=== PATIENT | female | born 1970 | race African-American/Black ===

== ENCOUNTER 2018-07-23 10:09 | Emergency (ER) | payer MEDICARE, MEDICAID ==
--- NOTE | 2018-07-23 10:32 | RAD ---
AP CHEST: Indication: Dizziness, hypertension. Comparison: 11-26-14 FINDINGS: Slight elevation of the right hemidiaphragm again noted. The lungs appear clear with no infiltrate id entified. Heart size is upper normal but accentuated by this projection. IMPRESSION: No acute process apparent. POS: [facility]
[2018-07-23 10:52] LABS: #Basophils 0.1 thou/uL (0.0-0.2); #Eosinphils 0.1 thou/uL (0.0-0.7); #Lymphocytes 2.1 thou/uL (1.20-3.40); #Monocytes 0.5 thou/uL (0.11-0.59); #Neutrophils 7.8 thou/uL (1.40-6.50); %Basophils 1.1 % (0.0-1.0); %Lymphocytes 20.1 % (21.0-51.0); %Monocytes 4.7 % (0.0-10.0); %Neutrophils 73.2 % (42.0-75.0); Hemoglobin 15.8 g/dL (12.0-16.0); Mean Corpuscular HGB CONC 31.8 g/dL (32.0-36.0); Mean Corpuscular Hemoglobin 29.1 pg (27.0-31.0); Mean Corpuscular Volume 91.6 fL (78.0-98.0); Mean Platelet Volume 7.3 fL (7.4-10.4); Platelet Count 367 thou/uL (130-400); RBC Distribution Width 14.9 % (11.5-14.5); Red Blood Cell (RBC) Count 5.43 mill/uL (4.20-5.40); White Blood Cell (WBC) Count 10.6 thou/uL (4.8-10.8)
[2018-07-23 11:10] LABS: ALT (SGPT) 10 U/L (8-55); AST (SGOT) 13 U/L (5-34); Albumin 4.2 g/dL (3.5-5.0); Alkaline Phosphatase 102 U/L (40-150); Anion Gap 15 mmol/L (10-20); BUN (Urea Nitrogen) 13 mg/dL (7.0-18.7); Bilirubin, Total 0.3 mg/dL (0.2-1.2); Calc. Creatinine Clearance 0 mL/min (70-130); Calcium 9.4 mg/dL (7.8-10.44); Carbon Dioxide 24 mmol/L (22-29); Chloride 102 mmol/L (98-107); Estimated GFR-MDRD Greater than 90; Globulin 3.4 g/dL (2.4-3.5); Glucose 88 mg/dL (70-105); Potassium 4.5 mmol/L (3.5-5.1); Protein, Total 7.6 g/dL (6.0-8.3); Sodium 136 mmol/L (136-145)
[2018-07-23] MEDS ORDERED: Acetaminophen 500 MG TAB ONE (12:27)
[2018-07-23] MEDS ORDERED: hydrALAZINE 20 MG/ML VIAL ONE (12:27)
--- NOTE | 2018-07-25 14:29 | EKG ---
Test Reason : Blood Pressure : / mmHG Vent. Rate : 087 BPM Atrial Rate : 087 BPM P-R Int : 160 ms QRS Dur : 070 ms QT Int : 372 ms P-R-T Axes : 036 007 025 degrees QTc Int : 447 ms Normal sinus rhythm Possible Left atrial enlargement Possible Inferior infarct , age undetermined Anterior infarct , age undetermined No STEMI Abnormal ECG Confirmed by YOHAN MCCOY, VAHE House ([id number]), tape editor JACLYN BAJWA ([id number]) on 07/25/2018 2:29:27 PM Referred By: Confirmed By:VAHE ALMANZAR MD
== END 2018-07-23 13:35 | disposition home or self-care (01) ==
LOC: ERS 10:09
DX: I10 Essential (primary) hypertension (principal); J45.901 Unspecified asthma with (acute) exacerbation; E78.5 Hyperlipidemia, unspecified; G43.909 Migraine, unspecified, not intractable, without status migrainosus; F31.9 Bipolar disorder, unspecified; F20.9 Schizophrenia, unspecified; F17.210 Nicotine dependence, cigarettes, uncomplicated; Z79.899 Other long term (current) drug therapy
CPT/HCPCS: 36415; 71045; 80053; 83880; 84484; 85025; 93005; 94640; 96374; J0360

== ENCOUNTER 2018-08-11 07:20 | Outpatient (CLI) | payer MEDICARE, MEDICAID ==
[2018-08-11 13:44] LABS: #Basophils 0.1 thou/uL (0.0-0.2); #Eosinphils 0.1 thou/uL (0.0-0.7); #Lymphocytes 2.5 thou/uL (1.20-3.40); #Monocytes 0.7 thou/uL (0.11-0.59); #Neutrophils 7.3 thou/uL (1.40-6.50); %Basophils 0.9 % (0.0-1.0); %Eosinophils 0.8 % (0.0-10.0); %Lymphocytes 23.3 % (21.0-51.0); %Monocytes 6.2 % (0.0-10.0); %Neutrophils 68.7 % (42.0-75.0); Hemoglobin 15.9 g/dL (12.0-16.0); Mean Corpuscular HGB CONC 31.6 g/dL (32.0-36.0); Mean Corpuscular Hemoglobin 29.4 pg (27.0-31.0); Mean Corpuscular Volume 92.8 fL (78.0-98.0); Platelet Count 352 thou/uL (130-400); Red Blood Cell (RBC) Count 5.43 mill/uL (4.20-5.40); White Blood Cell (WBC) Count 10.6 thou/uL (4.8-10.8)
[2018-08-11 13:54] LABS: Anion Gap 15 mmol/L (10-20); BUN (Urea Nitrogen) 10 mg/dL (7.0-18.7); Calc. Creatinine Clearance 0 mL/min (70-130); Calcium 9.6 mg/dL (7.8-10.44); Carbon Dioxide 23 mmol/L (22-29); Chloride 102 mmol/L (98-107); Estimated GFR-MDRD Greater than 90; Glucose 82 mg/dL (70-105); Potassium 4.2 mmol/L (3.5-5.1); Sodium 136 mmol/L (136-145)
[2018-08-11 13:59] LABS: BHCG - Serum Negative (NEGATIVE)
[2018-08-11 14:00] LABS: Pregs Control Background? CLEAR/WHITE (CLR/WHITE); Pregs Control Bar Appear? YES (CONTROL BAR)
--- NOTE | 2018-08-11 20:23 | EKG ---
Test Reason : Blood Pressure : / mmHG Vent. Rate : 093 BPM Atrial Rate : 093 BPM P-R Int : 156 ms QRS Dur : 078 ms QT Int : 352 ms P-R-T Axes : 052 046 028 degrees QTc Int : 437 ms Normal sinus rhythm with sinus arrhythmia Biatrial enlargement Anterior infarct (cited on or before 23-JUL-2018) Abnormal ECG When compared with ECG of 23-JUL-2018 10:15, Borderline criteria for Inferior infarct are no longer Present Confirmed by KAMERON MCCOY, DR. Ellison ([id number]) on 08/11/2018 8:22:50 PM Referred By: AMADOR Confirmed By:DR. Scot MELO MD
== END 2018-08-11 07:21 | disposition home or self-care (01) ==
LOC: LABBT 07:20
PROVIDERS: ATTEND Orthopaedic Surgery
DX: Z01.818 Encounter for other preprocedural examination (principal); G56.02 Carpal tunnel syndrome, left upper limb
CPT/HCPCS: 80048; 84703; 85025; 93005; 93010

== ENCOUNTER 2018-08-13 06:54 | Day surgery (SDC) | payer MEDICARE, MEDICAID ==
[2018-08-11 12:17] VITALS: BMI 62.8
--- NOTE | 2018-08-12 09:22 | HP ---
HISTORY OF PRESENT ILLNESS: The patient is a 48-year-old female with a several month history of pain and tingling in her left hand and wrist in median nerve distribution. There has been no injury. Her symptoms are identical to the symptoms she had in her right hand prior to carpal tunnel release several years ago. She has trouble gripping objects and pain and tingling interrupts her sleep. She has had persistent symptoms despite rest, restriction of activities, use of anti-inflammatory medication and splinting. She has required hydrocodone for pain. PAST HISTORY: The patient has history of hypertension, previous myocardial infarction, obesity, and bipolar disease. CURRENT MEDICATIONS: Clonidine, amlodipine, Cymbalta, hydrocodone. ALLERGIES: SHE IS ALLERGIC TO DARVOCET, TRAMADOL, HAS DIFFICULTY TOLERATING NSAIDS, PENICILLIN, AND LISINOPRIL. FAMILY HISTORY: Otherwise unremarkable. SOCIAL HISTORY: Otherwise unremarkable. REVIEW OF SYSTEMS: Otherwise unremarkable. PHYSICAL EXAMINATION: GENERAL: Reveals a healthy heavy-set female. HEENT: Unremarkable. NECK: Supple. CHEST: Clear. HEART: Regular rate and rhythm. ABDOMEN: Soft and nontender. PELVIC: Deferred. RECTAL: Deferred. BREASTS: Deferred. EXTREMITIES: Pertinent findings related to the left wrist, there is no definite atrophy. There are no wounds. She has mild tenderness over the CMC joint of her thumb. There is questionable weakness of opposition of her thumb. There is a positive Tinel sign and mildly positive Phalen's test. There is subjective numbness in median nerve distribution. There are good distal pulses. DIAGNOSTIC STUDIES: X-rays do reveal mild degenerative changes of the CMC joint of her thumb. Electrodiagnostic studies performed by Dr. Light reveal moderately severe left carpal tunnel syndrome. IMPRESSION: Left carpal tunnel syndrome. PLAN: Open left carpal tunnel release. The nature of the surgery, length of recovery, and potential complications such as infection, loss of motion, pain relief, nerve injury, recurrence, need for additional treatment, repeat surgery have been discussed in detail. Job ID: [id number]
[2018-08-13] MEDS ORDERED: Lidocaine 1% (PF) 30 ML VIAL ONE (08:29)
[2018-08-13] MEDS ORDERED: Bupivacaine PF 0.5% 30 ML VIAL ONE (08:29)
[2018-08-13] MEDS ORDERED: Clindamycin/D5W 900 mg/50 ml Premix Bag ONE (08:35)
[2018-08-13] MEDS ORDERED: Fentanyl 100 MCG/2 ML VIAL ONE (08:52)
[2018-08-13] MEDS ORDERED: Midazolam HCl 2 mg/2 ml Vial ONE (08:52)
--- NOTE | 2018-08-13 11:59 | OP ---
DATE OF PROCEDURE: 08/13/2018 ANESTHESIA: Local plus TIVA. PREOPERATIVE DIAGNOSIS: Left carpal tunnel syndrome. POSTOPERATIVE DIAGNOSIS: Left carpal tunnel syndrome. PROCEDURE PERFORMED: Open left carpal tunnel release. DESCRIPTION OF PROCEDURE: After satisfactory anesthesia was induced in the supine position, the patient was prepped and draped in routine manner. Field block with 1% lidocaine, approximately 10 mL was accomplished. The left arm was elevated and exsanguinated with an Esmarch bandage and tourniquet inflated to 250 mmHg. Incision was made from the distal palmar crease along the hypothenar eminence to the distal wrist flexion crease and this carried slightly this was carried down to the subcutaneous tissues. Bleeding points were controlled with Bovie cautery. Using sharp and blunt dissection, the distal edge of the transverse carpal ligament was identified and then divided in a distal to proximal direction over the groove director to protect the underlying median nerve. In similar fashion, the deep forearm fascia was split. There was marked constriction of the median nerve beneath the transverse carpal ligament. The nerve was gently freed up from the surrounding synovium including the recurrent branch to the thenar musculature, but no attempt was made to perform a formal neurolysis. The nerve was free and mobile. The tourniquet was released after 6 minutes. Additional bleeding points were controlled with Bovie cautery. The wound was thoroughly irrigated and closed with interrupted 3-0 nylon. A sterile bulky compressive dressing was applied and the patient immobilized in a short-arm volar plaster splint. She was awakened, taken from the operating room in stable condition. There were no apparent intraoperative complications. The estimated blood loss was negligible. The patient will be discharged home in satisfactory condition to use ice elevation, given written care instructions. She was given a prescription for [place] 10 for pain, 40 tablets. She will be rechecked in my office in approximately two weeks or sooner if there are any problems prior to that time. Job ID: [id number]
== END 2018-08-13 10:15 | disposition home or self-care (01) ==
LOC: SDC 06:54
PROVIDERS: ATTEND Orthopaedic Surgery
PROC: 01N50ZZ Release Median Nerve, Open Approach (ICD-10-PCS; principal; 2018-08-13)
DX: G56.02 Carpal tunnel syndrome, left upper limb (principal); I25.2 Old myocardial infarction; F31.9 Bipolar disorder, unspecified; E78.5 Hyperlipidemia, unspecified; G43.909 Migraine, unspecified, not intractable, without status migrainosus; M19.90 Unspecified osteoarthritis, unspecified site; G47.30 Sleep apnea, unspecified; I10 Essential (primary) hypertension; E66.9 Obesity, unspecified; Z68.44 Body mass index [BMI] 60.0-69.9, adult; Z79.82 Long term (current) use of aspirin; Z79.899 Other long term (current) drug therapy; Z88.0 Allergy status to penicillin; Z88.5 Allergy status to narcotic agent; Z88.6 Allergy status to analgesic agent; Z88.8 Allergy status to other drugs, medicaments and biological substances; Z91.048 Other nonmedicinal substance allergy status
CPT/HCPCS: J2001; J2250; J3010; J3490; S0020

== ENCOUNTER 2019-02-13 18:06 | Emergency (ER) | payer MEDICARE, MEDICAID ==
[2019-02-13] MEDS ORDERED: HYDROcodone/Acetaminophen 10/325 mg Tablet ONE (18:32)
--- NOTE | 2019-02-13 19:20 | RAD ---
EXAM: LEFT TIBIA AND FIBULA TWO VIEWS: 02/13/19 HISTORY: Injury following a fall. FINDINGS/IMPRESSION: Severe arthrosis of the left knee joint. No acute fracture or dislocation of the tibia or fibula. POS: [facility]
--- NOTE | 2019-02-13 19:24 | RAD ---
EXAM: LEFT KNEE FOUR VIEWS: 02/13/19 HISTORY: Fall and injury. COMPARISON: 10/21/12. FINDINGS: Very severe bilateral tricompartment arthrosis and degenerative changes with hypertrophic osteophytos is and joint space loss particularly the medial compartment without acute fracture or dislocation. IMPRESSION: Severe osteoarthrosis and degenerative changes showing marked worsening from prior study without acut e fracture. POS: [facility]
--- NOTE | 2019-02-13 19:45 | RAD ---
EXAM: RIGHT KNEE FOUR VIEWS: 02/13/19 HISTORY: Right knee injury following a fall. COMPARISON: 10/21/12. FINDINGS: Severe tricompartment arthrosis and degenerative changes with hypertrophic osteophytosis and marked m edial compartment joint space loss without acute fracture or dislocation. IMPRESSION: Severe osteoarthrosis of all three compartments without fracture. Worsening from prior study. POS: [facility]
== END 2019-02-13 19:15 | disposition home or self-care (01) ==
LOC: ERS 18:06
DX: M25.561 Pain in right knee (principal); M25.562 Pain in left knee; E78.5 Hyperlipidemia, unspecified; I10 Essential (primary) hypertension; M79.7 Fibromyalgia; G43.909 Migraine, unspecified, not intractable, without status migrainosus; J45.909 Unspecified asthma, uncomplicated; F31.9 Bipolar disorder, unspecified; F20.9 Schizophrenia, unspecified; F17.210 Nicotine dependence, cigarettes, uncomplicated; Z79.899 Other long term (current) drug therapy; W10.9XXA Fall (on) (from) unspecified stairs and steps, initial encounter